=== PATIENT | male | born 1945 | race Caucasian/White ===

== ENCOUNTER 2017-07-20 11:07 | Day surgery (SDC) | payer MEDICARE, MEDICAID ==
[~2017-07-20] VITALS: Ht 157.5 cm; Wt 86.4 kg
[~2017-07-20 11:07] MED LIST: ACET-812 PO; CITA20TA19 PO; DAY QUIL PO; NYQUIL PO; OMEP20CA10 PO; TRAM50TA2 PO; WHEA98PO PO
[2017-07-20 11:25] VITALS: BP 158/97
[2017-07-20] MEDS ORDERED: LURA80TA3 PO (11:44)
[2017-07-20] MEDS ORDERED: CITA40TA22 PO (11:45)
[2017-07-20] MEDS ORDERED: glucosamine PO (11:48)
[2017-07-20] MEDS ORDERED: GABA-530 PO (11:49)
[2017-07-20] MEDS ORDERED: TIOT4MIS3 INH (11:54)
[2017-07-20] MEDS ORDERED: [UNRECOGNIZED DRUG - OTHER] TOP (11:57)
[2017-07-20] MEDS ORDERED: GABA TOP (11:57)
[2017-07-20] MEDS ORDERED: MELOXICAM TOP (11:57)
[2017-07-20] MEDS ORDERED: IBUP-1985 PO (12:00)
[2017-07-20] MEDS ORDERED: acetaminophen PO (12:02)
[2017-07-20] MEDS ORDERED: ATRIN INH (12:03)
[2017-07-20] MEDS ORDERED: ZINC57OI3 TOP (12:04)
[2017-07-20] MEDS ORDERED: BISM262O PO (12:06)
[2017-07-20] MEDS ORDERED: CLOT15CR5 TOP (12:07)
[2017-07-20] MEDS ORDERED: KETO120S6 TOP (12:08)
[2017-07-20] MEDS ORDERED: MIDAZolam 5mg/5ml vial ONE (12:17)
[2017-07-20] MEDS ORDERED: fentaNYL/PF 50MCG/1 ML 2ML syringe ONE (12:17)
[2017-07-20 13:13] VITALS: BP 145/99
[2017-07-20 13:23] VITALS: BP 135/88
[2017-07-20 13:33] VITALS: BP 128/79
[2017-07-20 13:43] VITALS: BP 125/66
== END 2017-07-20 14:00 | disposition home or self-care (01) ==
LOC: GI LAB 11:07
PROVIDERS: ATTEND Internal Medicine Gastroenterology
DX: D12.3 Benign neoplasm of transverse colon (principal); K64.8 Other hemorrhoids; F31.9 Bipolar disorder, unspecified; K21.9 Gastro-esophageal reflux disease without esophagitis; M19.90 Unspecified osteoarthritis, unspecified site; N40.0 Benign prostatic hyperplasia without lower urinary tract symptoms; Z79.891 Long term (current) use of opiate analgesic; Z79.1 Long term (current) use of non-steroidal anti-inflammatories (NSAID); Z79.899 Other long term (current) drug therapy; Z87.19 Personal history of other diseases of the digestive system; Z98.890 Other specified postprocedural states
CPT/HCPCS: 45380; 45385; 99153; G0500; J2250; J3010; J7030; 88305; A4620

== ENCOUNTER 2021-03-25 08:59 | Day surgery (SDC) | payer MEDICARE, MEDICAID ==
[~2021-03-25] VITALS: Ht 154.9 cm; Wt 63.0 kg
[~2021-03-25 08:59] MED LIST changes: +ATRIN INH; +BISM262O PO; -CITA20TA19 PO; +CITA40TA22 PO; +CLOT15CR35 TOP; +GABA TOP; +GABA-530 PO; +IBUP-1985 PO; +KETO120S6 TOP; +LURA80TA3 PO; +MELOXICAM TOP; -OMEP20CA10 PO; +OMEP20CA15 PO; +TIOT4MIS3 INH; +ZINC57OI3 TOP; +[UNRECOGNIZED DRUG - OTHER] TOP; +acetaminophen PO; +glucosamine PO
[2021-03-25 09:15] VITALS: BP 150/87
[2021-03-25] MEDS ORDERED: ATOR20TA66 PO (09:30)
[2021-03-25] MEDS ORDERED: fentaNYL/PF 50MCG/1 ML 2ML syringe ONE (09:52)
[2021-03-25] MEDS ORDERED: MIDAZolam 1 MG/ML 5ML VIAL ONE (09:52)
[2021-03-25] MEDS ORDERED: LIDOcaine Viscous 15ml cup ONE (09:52)
[2021-03-25 10:56] VITALS: BP 140/92
[2021-03-25 11:06] VITALS: BP 119/64
[2021-03-25 11:16] VITALS: BP 139/103
[2021-03-25 11:26] VITALS: BP 153/77
== END 2021-03-25 11:32 | disposition home or self-care (01) ==
LOC: GI LAB 08:59
PROVIDERS: ATTEND Internal Medicine Gastroenterology
DX: R13.10 Dysphagia, unspecified (principal); K21.00 Gastro-esophageal reflux disease with esophagitis, without bleeding; K44.9 Diaphragmatic hernia without obstruction or gangrene; I10 Essential (primary) hypertension; E66.9 Obesity, unspecified; Z68.26 Body mass index [BMI] 26.0-26.9, adult; Z79.899 Other long term (current) drug therapy
CPT/HCPCS: 43239; 88305; G0500; J2250; J3010; J7040; Z7512; 99152; A4620

== ENCOUNTER 2024-05-27 10:18 | Outpatient (CLI) | payer MEDICARE, MEDICAID ==
[~2024-05-27 10:18] MED LIST changes: +ATOR20TA66 PO; +CEFD300C3 PO; -CITA40TA22 PO; +FURO20TA4 PO; -GABA TOP; +LISI5TAB22 PO; +LURA80TA2 PO; -LURA80TA3 PO; -MELOXICAM TOP; +PRED20TA PO; -[UNRECOGNIZED DRUG - OTHER] TOP
[2024-05-27 11:06] VITALS: PULSE 65; RESP 14; O2SAT 90
== END 2024-05-27 23:59 | disposition home or self-care (01) ==
LOC: RT 10:18
PROVIDERS: ATTEND Internal Medicine
DX: R05.3 Chronic cough (principal)
CPT/HCPCS: 94010; 94760